=== PATIENT | female | born 1995 | race Caucasian/White ===

== ENCOUNTER 2017-11-02 07:54 | Emergency (ER) | payer OTHER ==
[2017-11-02 08:24] LABS: BILIRUBIN,URINE NEGATIVE (NEGATIVE); GLUCOSE, URINE (UA) NEGATIVE (NEGATIVE); KETONES,URINE (UA) NEGATIVE (NEGATIVE); LEUKOCYTE ESTERASE, URINE NEGATIVE (NEGATIVE); NITRITE,URINE NEGATIVE (NEGATIVE); OCCULT BLOOD,URINE NEGATIVE (NEGATIVE); PROTEIN,URINE NEGATIVE (NEGATIVE); UROBILINOGEN,URINE 0.2 (NORMAL) E.U./dL (NORMAL)
[2017-11-02 08:26] LABS: CLARITY,URINE CLEAR (CLEAR)
[2017-11-02 08:27] LABS: HCG UR QUAL NEGATIVE
--- NOTE | 2017-11-02 08:41 | ED Physician Documentation ---
History of Present Illness - Stated complaint Stated Complaint: FEMALE - Chief complaint Chief Complaint: Abd Pain - Additonal information Additional information: hx from pt 22 f (one miscarriage age 15, one live age 18) LMP September 03 irreg bleeding and pelvic cramping for a month seen by JEYSON CHAIN TESTING MACHINE OPERATOR - had a pelvic exam with PAPA and cultures for infection, states she was told she had a miscarriage though never had a + HCG, was rec to start OCP to regulate hormones and bleeding but she is trying to get so doesnt want to be on OCP Review of Systems Constitutional: denies: Fever Cardiac: denies: Chest pain / pressure Respiratory: denies: Dyspnea GI: reports: Abdominal Pain (pelvic cramps) : reports: Vaginal bleeding. denies: Now EGA Immunocompromised: denies: Immunocompromised PD PAST MEDICAL HISTORY - Present Medications Home Medications: Ambulatory Orders Medication Instructions Recorded Confirmed No Known Home Medications [No 11/02/17 11/02/17 Known Home Medications] - Allergies Allergies/Adverse Reactions: Allergies Allergy/AdvReac Type Severity Reaction Status Date / Time No Known Drug Allergies Allergy Verified 11/02/17 08:07 PD ED PE NORMAL - Vitals Vital signs reviewed: Yes - Cardiac Cardiac: RRR - Respiratory Respiratory: No respiratory distress - Abdomen Abdomen: Soft, Non tender - Derm Derm: Normal color - Neuro Neuro: Alert and oriented X 3 Results - Vitals Vitals: Vital Signs - 24 hr 11/02/17 11/02/17 08:05 10:12 Temperature 36.2 C L Heart Rate 86 71 Respiratory 14 18 Rate Blood Pressure 130/100 H 111/84 H O2 Saturation 100 99 Oxygen O2 Source Room air - Labs Labs: Laboratory Tests 11/02/17 11/02/17 11/02/17 08:05 08:05 09:56 WBC 4.8 RBC 5.22 Hgb 15.6 Hct 45.9 MCV 87.9 MCH 29.8 MCHC 33.9 RDW 12.9 Plt Count 248 MPV 8.4 Neut # (Auto) 2.2 Lymph # (Auto) 2.0 [place] # (Auto) 0.5 Eos # (Auto) 0.1 Baso # (Auto) 0.0 Absolute Nucleated RBC 0.00 Nucleated RBC % 0.1 HCG, Quant Urine Color YELLOW Urine Clarity CLEAR Urine pH 6.0 Ur Specific [place] <=1.005 <=1.005 Urine Protein NEGATIVE Urine Glucose (UA) NEGATIVE Urine Ketones NEGATIVE Urine Occult Blood NEGATIVE Urine Nitrite NEGATIVE Urine Bilirubin NEGATIVE Urine Urobilinogen 0.2 (NORMAL) Ur Leukocyte Esterase NEGATIVE Ur Microscopic Review NOT INDICATED Urine Culture Comments NOT INDICATED Urine HCG, Qual NEGATIVE 11/02/17 09:56 WBC RBC Hgb Hct MCV MCH MCHC RDW Plt Count MPV Neut # (Auto) Lymph # (Auto) [place] # (Auto) Eos # (Auto) Baso # (Auto) Absolute Nucleated RBC Nucleated RBC % HCG, Quant < 0.60 Urine Color Urine Clarity Urine pH Ur Specific [place] Urine Protein Urine Glucose (UA) Urine Ketones Urine Occult Blood Urine Nitrite Urine Bilirubin Urine Urobilinogen Ur Leukocyte Esterase Ur Microscopic Review Urine Culture Comments Urine HCG, Qual - Rads (name of study) pelvic with doppler Radiology: See rad report (normal) PD MEDICAL DECISION MAKING - Sepsis Event Vital Signs: Vital Signs - 24 hr 11/02/17 11/02/17 08:05 10:12 Temperature 36.2 C L Heart Rate 86 71 Respiratory 14 18 Rate Blood Pressure 130/100 H 111/84 H O2 Saturation 100 99 Oxygen O2 Source Room air Departure - Departure Disposition: 01 Home, Self Care Clinical Impression: Dysfunctional uterine bleeding Condition: Good Instructions: ED Bleed Irregular Vaginal Follow-Up: JEYSON Vazquez [Provider Group] Comments: The blood test was negative Your blood count is fine. The ultrasound was fine. The bleeding could be due to dysfunctional uterine bleeding - control pills might help but I understand if you don't want to take those because you want to get . I would recommend waiting to try and get until your cycles have regulated. If the bleeding continue you should follow up with CHAIN TESTING MACHINE OPERATOR to discuss if you need an endometrial biopsy Return if worse (very heavy bleeding, feeling faint etc)
--- NOTE | 2017-11-02 09:50 | Ultrasound Report ---
Procedure Date: 11/02/2017 Accession Number: [id number] / [id number] Procedure: US - Pelvic w/Transvag+Doppler Ltd CPT Code: FULL RESULT: EXAM: Pelvic w/Transvag+Doppler Ltd DATE: 11/02/2017 9:37 AM CLINICAL HISTORY: pelvic pain and bleeding X 1 month COMPARISON: None. TECHNIQUE: Realtime transabdominal imaging performed to identify the uterus and adnexa and as an overview of other pelvic structures, followed by transvaginal imaging for better assessment of the endometrium and/or adnexa, with static image documentation. Color flow imaging and Doppler spectral analysis was performed to evaluate blood flow to the ovaries given pelvic pain. FINDINGS: Uterus: 8.5 x 5.5 x 4.1 cm, volume 100 cc. Anteverted position. Normal overall size and echotexture. Masses: None. Endometrium: 4.4 mm. Normal. Cervix: Unremarkable. Right Ovary: 4.3 x 2.4 x 1.8 cm, volume 9.7 cc. Normal echotexture. Right Ovary: Arterial and venous blood flow are present with expected spectral tracing. Adnexa are unremarkable. Left Ovary: 3.1 x 2.3 x 1.9 cm, volume 7.1 cc. Normal echotexture. Left Ovary: Arterial and venous blood flow are present with expected spectral tracing. Adnexa are unremarkable. Free Fluid: A small amount of free fluid is seen near the right ovary where a dominant follicle is identified, likely physiologic. Other: None. IMPRESSION: 1. Normal pelvic ultrasound. 2. Arterial and venous blood flow are present to the ovaries bilaterally. [facility]
[2017-11-02 10:02] LABS: BASOPHILS % (AUTO) 0.4 %; EOSINOPHILS # (AUTO) 0.1 10^3/uL (0.0-0.7); EOSINOPHILS % (AUTO) 1.9 %; HGB - HEMOGLOBIN 15.6 g/dL (12.0-16.0); LYMPHOCYTES % (AUTO) 42.2 %; MEAN CORPUSCULAR HEMOGLOBIN 29.8 pg (27.0-31.0); MEAN CORPUSCULAR HGB CONC 33.9 g/dL (32.0-36.0); MEAN CORPUSCULAR VOLUME 87.9 fL (81.0-99.0); MEAN PLATELET VOLUME 8.4 fL (7.9-10.8); MONOCYTES # (AUTO) 0.5 10^3/uL (0.0-1.0); MONOCYTES % (AUTO) 10.6 %; NEUTROPHILS # (AUTO) 2.2 10^3/uL (1.5-6.6); NEUTROPHILS % (AUTO) 44.9 %; PLT - PLATELET COUNT 248 10^3/uL (130-450); RED BLOOD COUNT 5.22 10^6/uL (4.20-5.40); RED CELL DISTRIBUTION WIDTH 12.9 % (12.0-15.0); WHITE BLOOD COUNT 4.8 x10^3/uL (4.8-10.8)
[2017-11-02 10:13] VITALS: BP 111/84
== END 2017-11-02 11:03 | disposition home or self-care (01) ==
LOC: ED 07:54
DX: N93.8 Other specified abnormal uterine and vaginal bleeding (principal)
CPT/HCPCS: 36415; 76830; 76856; 81001; 81003; 81025; 84702; 85025; 87086; 93976; 99282; 99283

== ENCOUNTER 2017-12-26 07:57 | Emergency (ER) | payer OTHER ==
[2017-12-26] MEDS ORDERED: IBUPROFEN 400 MG TABLET PO STA (08:47)
--- NOTE | 2017-12-26 08:50 | ED Physician Documentation ---
History of Present Illness - Stated complaint Stated Complaint: LEFT KNEE PX - Chief complaint Chief Complaint: Ext Problem - Additonal information Additional information: hx from pt 22 f healthy no recent travel denies preg to ED with insidious onset L knee pain and swelling no specific trauma hurts more with walking down stairs throbbing [place] > medial no calf swelling no redness no fever Review of Systems Constitutional: denies: Fever Cardiac: denies: Chest pain / pressure Respiratory: denies: Dyspnea, Cough : denies: Now EGA Musculoskeletal: reports: Joint pain, Joint swelling Immunocompromised: denies: Immunocompromised PD PAST MEDICAL HISTORY - Past Medical History Past Medical History: No - Past Surgical History Past Surgical History: No - Present Medications Home Medications: Ambulatory Orders Medication Instructions Recorded Confirmed No Known Home Medications 11/02/17 11/02/17 - Allergies Allergies/Adverse Reactions: Allergies Allergy/AdvReac Type Severity Reaction Status Date / Time No Known Drug Allergies Allergy Verified 12/26/17 08:12 - Social History Does the pt smoke?: No Smoking Status: Never smoker PD ED PE NORMAL - Vitals Vital signs reviewed: Yes - General General: Alert and oriented X 3 - Respiratory Respiratory: No respiratory distress - Extremities Extremities: Other (R knee + effusion, no erythema or warmth, no jt lines TTP, balltable patella but NT, no patellar or quad tendon TTP, MCL LCL ACL s laxity, pain but no pop with meniscal testing, no popliteal swelling, calf not swollen or TTP, MSV intact) Results - Vitals Vitals: Vital Signs - 24 hr 12/26/17 08:08 Temperature 36.8 C Heart Rate 98 Respiratory 16 Rate Blood Pressure 116/73 O2 Saturation 98 Oxygen O2 Source Room air - Rads (name of study) knee Radiology: See rad report (neg) PD MEDICAL DECISION MAKING - Sepsis Event Vital Signs: Vital Signs - 24 hr 12/26/17 08:08 Temperature 36.8 C Heart Rate 98 Respiratory 16 Rate Blood Pressure 116/73 O2 Saturation 98 Oxygen O2 Source Room air Departure - Departure Disposition: 01 Home, Self Care Clinical Impression: Knee effusion, left Condition: Good Instructions: ED Effusion Knee Follow-Up: [facility] [Provider Group] Comments: The xray is fine - no bone abnormalities Your exam does not suggest an infected knee joint or a blood clot. But there is fluid in the knee capsule - this is likely due to some sort of injury - the major stabilizing ligaments are solid on exam but perhaps a mensical tear - but even just minor soft tissue injuries can cause fluid accumulation I think it is safe for you to go home Wear the KEELY wrap to decrease swelling and crutches to reduce the weight bearing stress Motrin ice and elevation will help the pain and swelling too. If the swelling persists, call orthopedics to schedule an appointment for further evaluation and perhaps imaging such as MRI Return if worse Forms: Activity restrictions
--- NOTE | 2017-12-26 09:23 | XRAY Report ---
Reason: pain Procedure Date: 12/26/2017 Accession Number: [id number] / [id number] Procedure: XR - Knee 4 View LT CPT Code: FULL RESULT: EXAM: LEFT KNEE RADIOGRAPHY EXAM DATE: 12/26/2017 08:58 AM. CLINICAL HISTORY: Pain. COMPARISON: None. TECHNIQUE: 4 views. FINDINGS: Bones: Normal. No fractures or bone lesions. Joints: Normal. No effusion. No subluxations. Soft Tissues: Normal. No soft tissue swelling. IMPRESSION: Normal knee radiography. [facility]
[2017-12-26 10:20] VITALS: BP 127/86
== END 2017-12-26 10:20 | disposition home or self-care (01) ==
LOC: ED 07:57
DX: M25.462 Effusion, left knee (principal); M25.562 Pain in left knee
CPT/HCPCS: 73564; 99283; A9270